=== PATIENT | male | born 1975 | race Caucasian/White ===

== ENCOUNTER 2017-12-05 17:01 | Inpatient (IN) | payer SELFPAY ==
[~2017-12-05] VITALS: Ht 180.3 cm; Wt 106.8 kg
[~2017-12-05 17:01] MED LIST: LEVAQUIN500 MG PO; TYLENOL WITH C1 EACH PO; ZOFRAN ODT4 MG PO
[2017-12-05] MEDS ORDERED: PANTOPRAZOLE 40 MG 10ML VIAL IV STA (20:35)
[2017-12-05] MEDS ORDERED: SODIUM CHLORIDE 0.9% 1000ML 1,000 ML IV STA ×2 (20:35→23:28)
[2017-12-05] MEDS ORDERED: ONDANSETRON HCL 4 MG ORAL DISINTEGRATING TAB PO ONE (21:00)
--- NOTE | 2017-12-05 21:36 | Diagnostic Imaging Report ---
ABDOMEN COMP INCL UPR or DECUB, CHEST 2 VIEWS Clinical history: Nausea, vomiting, abdominal pain Technique: AP view abdomen, supine and upright PA and lateral views of the chest Comparison: None Findings: Abdomen: No dilated loops of small or large bowel. No evidence of free air. Cholecystectomy clips. Chest: Normal cardiomediastinal silhouette. Calcified left upper lobe granuloma. No consolidation or edema. No effusion or pneumothorax. Impression: Nonobstructive bowel gas pattern. No acute intrathoracic abnormality. Signed by: Dr Felicita Dumont MD on 12/05/2017 9:33 PM
[2017-12-05 22:35] LABS: BASOPHILS # (AUTO) 0.1 (0.0-0.1); BASOPHILS % 0.5 % (0.0-1.0); EOSINOPHILS # (AUTO) 0.3 (0.0-0.4); EOSINOPHILS % 2.7 % (0.0-6.0); HEMATOCRIT 51.2 % (38.2-49.6); HEMOGLOBIN 18.9 g/dL (14.0-18.0); LYMPHOCYTES # (AUTO) 3.9 (1.0-3.2); LYMPHOCYTES % 40.9 % (18.0-39.1); MEAN CORPUSCULAR HEMOGLOBIN 32.7 pg (28-32); MEAN CORPUSCULAR HGB CONC 36.9 g/dL (31-35); MEAN CORPUSCULAR VOLUME 88.6 fL (81-99); MONOCYTES % 10.2 % (4.4-11.3); NEUTROPHILS # (AUTO) 4.4 (2.1-6.9); NEUTROPHILS % 45.4 % (38.7-80.0); PLATELET COUNT 312 x10e3/uL (140-360); RED BLOOD COUNT 5.78 x10e6/uL (4.3-5.7); RED CELL DISTRIBUTION WIDTH 13.2 % (11.7-14.4)
[2017-12-05 22:39] LABS: INR 1.01; PROTHROMBIN TIME 12.5 seconds (11.9-14.5)
[2017-12-05 22:49] LABS: ALANINE AMINOTRANSFERASE 34 IU/L (0-55); ALBUMIN 4.6 g/dL (3.5-5.0); ALBUMIN/GLOBULIN RATIO 0.8 (0.8-2.0); ALKALINE PHOSPHATASE 98 IU/L (40-150); AMYLASE 63 U/L (25-125); ANION GAP 23.1 mmol/L (8-16); BLOOD UREA NITROGEN 102 mg/dL (7-26); BUN/CREATININE RATIO 25 (6-25); CALCIUM 10.5 mg/dL (8.4-10.2); CARBON DIOXIDE 23 mmol/L (22-29); CHLORIDE 85 mmol/L (98-107); CREATINE KINASE 453 IU/L (30-200); CREATININE, SERUM 4.09 mg/dL (0.72-1.25); EST GLOMERULAR FILTRATION RATE 16 ML/MIN (60-); GLUCOSE 100 mg/dL (74-118); LIPASE 26 U/L (8-78); POTASSIUM 3.1 mmol/L (3.5-5.1); SODIUM 128 mmol/L (136-145)
[2017-12-05] MEDS ORDERED: MORPHINE SULFATE 2 MG/ML SYR IV STA (23:28)
[2017-12-05] MEDS ORDERED: SODIUM CHLORIDE 0.9% 1000ML 1,000 ML ONE (23:30)
[2017-12-05] MEDS ORDERED: PROMETHAZINE 12.5MG/ NACL 0.9% 12.5 MG/50 ML BAG IV ONE (23:30)
[2017-12-06] VITALS (10 sets, daily range): BP systolic 105–124; BP diastolic 60–86
[2017-12-06] MEDS ORDERED: KCL 20MEQ/.9 SOD CHL 1,000 ML IV ONE
[2017-12-06] MEDS ORDERED: MORPHINE SULFATE 2 MG/ML SYR IV PRN
--- OUTSIDE RECORDS SUMMARY | 2017-12-06 00:19 | XMS REPORT ---
[facility] Address Unknown Phone Unavailable Care Team Providers Care Structural Engineering Drafting Officer Name Role Phone JESSE EISENBERG Unavailable Unavailable Problems This patient has no known problems. Allergies, Adverse Reactions, Alerts This patient has no known allergies or adverse reactions. Medications This patient has no known medications. Encounters Start Date/Time End Date/Time Encounter Type Admission Type Attending Clinicians Care Facility Care Department Encounter ID 2017-04-24 00:00:00 2017-04-24 00:00:[address] [facility] [id number] 2017-04-23 00:00:00 2017-04-23 00:00:[address] [facility] [id number] 2017-04-11 00:00:00 2017-04-11 00:00:[address] [facility] [id number] 2017-04-07 23:58:15 2017-04-07 23:58:[address] [facility] [id number] 2017-04-07 20:47:49 2017-04-07 20:47:49 Inpatient [facility] [id number] Results Test Description Test Time Test Comments Text Results Atomic Results Result Comments CHEST 2 VIEWS [place] [address] Patient Name: EMMA VARGHESE MR #: [id number] : 1975 Age/Sex: 42/M Req #: [id number] Adm Physician: Ordered by: JESSE EISENBERG MD Report #: [id number] Location: ER Room/Bed: Procedure: [id number] DX/CHEST 2 VIEWS Exam Date: 12/05/17 Exam Time: 2099 REPORT STATUS: Signed ABDOMEN COMP INCL UPR or DECUB, CHEST 2 VIEWS Clinical history: Nausea, vomiting, abdominal pain Technique: AP view abdomen, supine and upright PA and lateral views of the chest Comparison: None Findings: Abdomen: No dilated loops of small or large bowel. No evidence of free air. Cholecystectomy clips. Chest: Normal cardiomediastinal silhouette. Calcified left upper lobe granuloma. No consolidation or edema. No effusion or pneumothorax. Impression: Nonobstructive bowel gas pattern. No acute intrathoracic abnormality. Signed by: Dr Keke Dumont MD on 12/05/2017 9:33 PM Dictated By: KEKE DUMONT MD 32 Transcribed By: KEENAN on 12/05/172132 COPY TO: JESSE EISENBERG MD ABDOMEN COMP INCL UPR or DECUB [place] [address] Patient Name: EMMA VARGHESE MR #: [id number] : 1975 Age/Sex: 42/M Req #: [id number] Adm Physician: Ordered by: JESSE EISENBERG MD Report #: [id number] Location: ER Room/Bed: Procedure: [id number] DX/ABDOMEN COMP INCL UPR or DECUB Exam Date: 12/05/17 Exam Time: 2099 REPORT STATUS: Signed ABDOMEN COMP INCL UPR or DECUB, CHEST 2 VIEWS Clinical history: Nausea, vomiting, abdominal pain Technique: AP view abdomen, supine and upright PA and lateral views of the chest Comparison: None Findings: Abdomen: No dilated loops of small or large bowel. No evidence of free air. Cholecystectomy clips. Chest: Normal cardiomediastinal silhouette. Calcified left upper lobe granuloma. No consolidation or edema. No effusion or pneumothorax. Impression: Nonobstructive bowel gas pattern. No acute intrathoracic abnormality. Signed by: Dr Keke Dumont MD on 2017 9:33 PM Dictated By: KEKE DUMONT MD 32 Transcribed By: KEENAN on 12/05/172132 COPY TO: JESSE EISENBERG MD
[2017-12-06] MEDS: METOCLOPRAMIDE HCL 10 MG/2ML VIAL IV SCH ×4 (00:35→17:35)
[2017-12-06 01:07] LABS: COLOR,URINE YELLOW (YELLOW); LEUKOCYTE ESTERASE ,URINE NEGATIVE (NEGATIVE); NITRITE,URINE NEGATIVE (NEGATIVE); PROTEIN,URINE DIPSTICK 1+ (NEGATIVE)
[2017-12-06 01:08] LABS: BILIRUBIN,URINE NEGATIVE (NEGATIVE); CLARITY,URINE SL CLOUDY (CLEAR); KETONES,URINE NEGATIVE (NEGATIVE); URINE UROBILINOGEN 0.2 mg/dL (0.2 - 1)
[2017-12-06 01:16] LABS: BACTERIA,URINE FEW /HPF; EPITHELIAL CELLS,URINE FEW /LPF; WBC,URINE (MAN) >50 /HPF (0-5)
[2017-12-06] MEDS: SODIUM CHLORIDE 0.9% 1000ML 1,000 ML IV SCH ×3 (02:00→17:35)
[2017-12-06] MEDS: PANTOPRAZOLE 40 MG 10ML VIAL IV SCH ×2 (08:40→16:55)
[2017-12-06 09:18] LABS: BASOPHILS # (AUTO) 0.1 (0.0-0.1); BASOPHILS % 0.6 % (0.0-1.0); EOSINOPHILS # (AUTO) 0.3 (0.0-0.4); EOSINOPHILS % 3.4 % (0.0-6.0); HEMATOCRIT 44.7 % (38.2-49.6); LYMPHOCYTES % 37.6 % (18.0-39.1); MEAN CORPUSCULAR HEMOGLOBIN 32.3 pg (28-32); MEAN CORPUSCULAR HGB CONC 35.8 g/dL (31-35); MEAN CORPUSCULAR VOLUME 90.1 fL (81-99); MONOCYTES # (AUTO) 0.8 (0.2-0.8); MONOCYTES % 10.3 % (4.4-11.3); NEUTROPHILS # (AUTO) 3.9 (2.1-6.9); NEUTROPHILS % 47.9 % (38.7-80.0); PLATELET COUNT 270 x10e3/uL (140-360); RED BLOOD COUNT 4.96 x10e6/uL (4.3-5.7); RED CELL DISTRIBUTION WIDTH 13.3 % (11.7-14.4)
[2017-12-06 09:35] LABS: ALBUMIN 3.5 g/dL (3.5-5.0); ALBUMIN/GLOBULIN RATIO 0.8 (0.8-2.0); ANION GAP 13.5 mmol/L (8-16); CALCIUM 9.2 mg/dL (8.4-10.2); CREATININE, SERUM 1.5 mg/dL (0.72-1.25); POTASSIUM 3.5 mmol/L (3.5-5.1)
[2017-12-06 09:51] LABS: CREATINE KINASE 281 IU/L (30-200)
[2017-12-06 17:30] LABS: CREATINE KINASE 227 IU/L (30-200)
[2017-12-06] MEDS: PANTOPRAZOLE SOD 40 MG TABEC PO SCH (18:00)
--- NOTE | 2017-12-06 18:49 | History and Physical ---
PRIMARY CARE PHYSICIAN: Patient has no local PCP. CHIEF COMPLAINT: Abdominal pain. HISTORY OF PRESENT ILLNESS: Mr. Ye is a 42-year-old gentleman who presents with epigastric abdominal pain with nausea, vomiting, and diarrhea for 24 hours, possibly after eating some bad food. REVIEW OF SYSTEMS: He denies fever, chills, or weight loss. He denies sinus congestion or sore throat. He denies chest pain or palpitations. He denies shortness of breath, wheezing, or cough. He has midepigastric abdominal pain with nausea, vomiting, and diarrhea. He denies melena or hematemesis. He denies dysuria or flank pain. He denies rash or pruritus. He denies headache, vertigo, or loss of consciousness. He denies depression, agitation, homicidal or suicidal ideation. PAST MEDICAL HISTORY: Significant for previous history of hepatitis C, unclear whether the patient is active or not. He has been treated in the past. He also has a history of diverticulitis. He has a distant history of cholecystectomy. CURRENT MEDICATIONS: Include Tylenol No. 3 as needed. He was taking levofloxacin for UTI and Zofran as needed. ALLERGIES: He has no known drug allergies. FAMILY HISTORY: Unremarkable. SOCIAL HISTORY: The patient is . [place] Zealander is his primary language. He is a daily smoker. He drinks rarely. He does not use illegal drugs and is generally independent functioning. PHYSICAL EXAMINATION PSYCHIATRIC: He is alert and oriented x3 with normal mood and affect. CONSTITUTIONAL: He has a normal habitus. He is in no acute distress. VITAL SIGNS: Blood pressure 113/68, pulse 69 and regular, respiratory rate 20, O2 sat 96% on room air, temperature 97.6. HEENT: His head is atraumatic. His eyes are anicteric with clear conjunctivae. Ears and nares are without erythema or discharge. Oropharynx is clear. NECK: Supple with no mass or thyromegaly. LYMPHATIC: He has no palpable cervical, axillary, or inguinal adenopathy. CARDIOVASCULAR: His heart has a regular rate rhythm without murmur or extra heart sounds. He has no carotid bruit. He has no peripheral edema. He has weak dorsal pedal pulses. RESPIRATORY: Lungs are clear to auscultation and percussion with somewhat diminished breath sounds. Otherwise lungs are clear. He has normal respiratory effort. GASTROINTESTINAL: His abdomen is soft without organomegaly, masses, or tenderness. He has no hepatosplenomegaly and normal bowel sounds are present. CUTANEOUS: His skin is warm and dry to touch with no rash or skin breakdown. MUSCULOSKELETAL: His joints are in normal alignment without erythema or swelling. He has no calf tenderness. NEUROLOGIC: Nonfocal with intact cranial nerves and no motor or sensory deficits. DIAGNOSTIC STUDIES: Chest x-ray shows no acute disease. KUB shows no acute disease. His chemistry shows sodium of 128, potassium 3.1, chloride 85, CO2 of 23, creatinine 4.09, BUN 102, glucose 100, calcium level was 10.5, and GFR 16. After overnight hydration, the patient's electrolytes are normal, CO2 is 20, creatinine 1.5, BUN 66 for a GFR of 51, glucose is still 100. His amylase is 26, lipase 29. Transaminases, bilirubin, and alk phos are normal. CBC shows a white count of 8.05 with a normal differential, hemoglobin 16.0, hematocrit 44.7, and platelet count 270,000. IMPRESSION AND PLAN 1. Gastroenteritis. The patient has received IV fluids, clear liquids, and we will advance his diet. 2. Acute kidney injury/dehydration. The patient is receiving aggressive IV fluid resuscitation. His renal function is improving and it looks like will improve to baseline. 3. For prophylaxis, we will use sequential compression devices for deep venous thrombosis prophylaxis and Protonix for gastrointestinal prophylaxis. Job#: [id number] JUAN DIEGO
[2017-12-06] MEDS: METOCLOPRAMIDE HCL 10 MG TAB PO SCH (20:43)
[2017-12-07] VITALS: BP 133/64
[2017-12-07] MEDS: SODIUM CHLORIDE 0.9% 1000ML 1,000 ML IV SCH ×2 (00:52→06:31)
[2017-12-07 04:00] VITALS: BP 112/56
[2017-12-07 07:53] LABS: BASOPHILS # (AUTO) 0.1 (0.0-0.1); BASOPHILS % 0.6 % (0.0-1.0); EOSINOPHILS # (AUTO) 0.3 (0.0-0.4); HEMATOCRIT 42.8 % (38.2-49.6); LYMPHOCYTES # (AUTO) 3.6 (1.0-3.2); LYMPHOCYTES % 43.8 % (18.0-39.1); MEAN CORPUSCULAR HEMOGLOBIN 32.3 pg (28-32); MONOCYTES # (AUTO) 0.8 (0.2-0.8); MONOCYTES % 9.9 % (4.4-11.3); NEUTROPHILS # (AUTO) 3.4 (2.1-6.9); NEUTROPHILS % 41.5 % (38.7-80.0); PLATELET COUNT 254 x10e3/uL (140-360); RED BLOOD COUNT 4.65 x10e6/uL (4.3-5.7); RED CELL DISTRIBUTION WIDTH 13.3 % (11.7-14.4)
[2017-12-07 08:00] VITALS: BP 130/66
[2017-12-07] MEDS: METOCLOPRAMIDE HCL 10 MG TAB PO SCH (08:00)
[2017-12-07] MEDS: PANTOPRAZOLE SOD 40 MG TABEC PO SCH (08:00)
[2017-12-07 08:13] VITALS: BP 130/66
[2017-12-07 08:23] LABS: ANION GAP 9.7 mmol/L (8-16); BLOOD UREA NITROGEN 23 mg/dL (7-26); BUN/CREATININE RATIO 31 (6-25); CALCIUM 9.2 mg/dL (8.4-10.2); CARBON DIOXIDE 24 mmol/L (22-29); CHLORIDE 105 mmol/L (98-107); CREATININE, SERUM 0.75 mg/dL (0.72-1.25); EST GLOMERULAR FILTRATION RATE > 60 ML/MIN (60-); GLUCOSE 100 mg/dL (74-118); POTASSIUM 3.7 mmol/L (3.5-5.1); SODIUM 135 mmol/L (136-145)
[2017-12-07] MEDS ORDERED: METOCLOPRAMIDE10 MG PO (09:32)
[2017-12-07] MEDS ORDERED: PROTONIX40 MG/ML PO (09:32)
--- NOTE | 2017-12-07 14:31 | Discharge Summary ---
PERTINENT HISTORY AND PHYSICAL FINDINGS: Mr. Ye is a 42-year-old gentleman who had presented to the emergency department with epigastric abdominal pain with nausea, vomiting, diarrhea for 24 hours, possibly after eating some bad food. PAST MEDICAL HISTORY: Significant for hepatitis C, and it was unclear whether it was active or not. He has been treated for hepatitis C in the past. Also has a history of diverticulitis and a distant history of cholecystectomy. He does take Tylenol No. 3 p.r.n. and Zofran as needed. He had been taking Levaquin for a urinary tract infection. NO KNOWN ALLERGIES. FAMILY HISTORY: Unremarkable. SOCIAL HISTORY: He is . Greenlandic is his primary language. He is a daily smoker. He drinks rarely, does not use illegal drugs and is generally independent functioning. ADMISSION DIAGNOSES 1. Gastroenteritis. 2. Acute kidney injury/dehydration. DISCHARGE DIAGNOSES 1. Gastroenteritis with nausea, vomiting, diarrhea. 2. Acute kidney injury/dehydration. 3. Nicotine use disorder, cigarettes, uncomplicated. No consulting physicians. PERTINENT DIAGNOSTICS AND LABS: Patient's chest x-ray showed no active or acute disease. KUB was negative. Chemistry showed sodium 128, potassium 3.1, chloride 85, CO2 23, creatinine 4.09, BUN 102, glucose 100, calcium 10.5 and GFR 16 upon admission. After overnight hydration, electrolytes were normal, CO2 20, creatinine 1.5, BUN 66 for a GFR of 51, glucose 100. Amylase 26, lipase 29. Transaminases, bilirubin and alkaline phosphatase were normal. CBC showed a white blood cell count of 8.05 with a normal differential, hemoglobin 16, hematocrit 44.7 and platelet count 270,000. Today the patient's WBC was 8.1, hemoglobin 15, hematocrit 42.8, platelets 254,000. Sodium 135, potassium 3.7, chloride 105, CO2 24, BUN 23, creatinine 0.75, glucose 100, GFR greater than 60, calcium 9.2, magnesium 2.0. Subjectively the patient has no pain. He has no complaints of nausea or vomiting this morning. He states he had 2 diarrhea stools this morning and possibly 1 yesterday. He ate 100% of his breakfast without difficulty. The rest of his review of systems was negative. PHYSICAL EXAMINATION VITAL SIGNS: Temperature 97.1, heart rate 78, blood pressure 112/56, respirations 18, oxygen saturation 95% on room air. GENERAL: The patient lying supine, flat in bed. No acute distress. LUNGS: Clear to auscultation. Respiratory pattern even and unlabored. HEENT: Extraocular eye movements intact. Moist mucous membranes. NECK: Supple. No lymphadenopathy or thyromegaly. CARDIOVASCULAR: Regular rate and rhythm. No murmur. He has normal saline infusing at 150 mL an hour into a peripheral IV. ABDOMEN: Bowel sounds positive. Soft, nontender. EXTREMITIES: Without pitting edema. No signs or symptoms of DVT. NEUROLOGICAL: GCS 15. Nonfocal. Patient will be discharged home without home health. He will not require any DME. He is to continue on a regular diet, activity level as tolerated. Prescriptions will be provided for Protonix and metoclopramide. He is to follow up with his PCP in 1 to 2 weeks. If he does not have a PCP, he is to follow up with Dr. Dominguez in 1 to 2 weeks. Dictated by: Juan Miguel Soto NP ONEYDA DOMINGUEZ MD Job#: [id number]
== END 2017-12-07 10:50 | disposition home health service (06) | DRG 683 ==
LOC: ER 17:01 → ERHOLD 12-06 00:16 → MED/SURG3 12-06 00:37
PROVIDERS: ADMIT Internal Medicine; ATTEND Internal Medicine
DX: N17.9 Acute kidney failure, unspecified (principal); E87.1 Hypo-osmolality and hyponatremia; N39.0 Urinary tract infection, site not specified; K52.9 Noninfective gastroenteritis and colitis, unspecified; F17.210 Nicotine dependence, cigarettes, uncomplicated; B19.20 Unspecified viral hepatitis C without hepatic coma; E86.0 Dehydration; E87.8 Other disorders of electrolyte and fluid balance, not elsewhere classified; E83.41 Hypermagnesemia
CPT/HCPCS: 36415; 71046; 80048; 80053; 81001; 82150; 82550; 82553; 83690; 83735; 84484; 85025; 85610; 85730; 93005; 96361; 99284; J2270; J2550; J2765; J7030

== ENCOUNTER 2019-02-17 07:47 | Emergency (ER) | payer SELFPAY ==
[~2019-02-17] VITALS: Ht 180.3 cm; Wt 106.6 kg
[~2019-02-17 07:47] MED LIST changes: +METOCLOPRAMIDE10 MG PO; +PROTONIX40 MG/ML PO
[2019-02-17] MEDS ORDERED: MORPHINE SULFATE 2 MG/ML SYR 1ML IV STA (08:05)
[2019-02-17] MEDS ORDERED: SODIUM CHLORIDE 0.9% 1000ML 1,000 ML IV STA (08:05)
[2019-02-17] MEDS ORDERED: ONDANSETRON HCL INJ 2MG/ML 2ML 2 MG/ML VIAL IV STA (08:05)
[2019-02-17] MEDS ORDERED: PANTOPRAZOLE 40 MG 10ML VIAL IV STA (08:05)
[2019-02-17] MEDS ORDERED: DIATRIZOATE MEGL/DIATRIZOA SOD 30 ML BTL PO ONE (08:19)
[2019-02-17 08:31] LABS: BASOPHILS # (AUTO) 0.1 (0.0-0.1); BASOPHILS % 0.5 % (0.0-1.0); EOSINOPHILS # (AUTO) 0.2 (0.0-0.4); EOSINOPHILS % 2.1 % (0.0-6.0); HEMATOCRIT 49.4 % (38.2-49.6); HEMOGLOBIN 17.6 g/dL (14.0-18.0); LYMPHOCYTES # (AUTO) 3.4 (1.0-3.2); LYMPHOCYTES % 34.5 % (18.0-39.1); MEAN CORPUSCULAR HEMOGLOBIN 31.7 pg (28-32); MEAN CORPUSCULAR HGB CONC 35.6 g/dL (31-35); MONOCYTES # (AUTO) 0.9 (0.2-0.8); MONOCYTES % 9.1 % (4.4-11.3); NEUTROPHILS # (AUTO) 5.3 (2.1-6.9); NEUTROPHILS % 53.3 % (38.7-80.0); PLATELET COUNT 293 x10e3/uL (140-360); RED BLOOD COUNT 5.55 x10e6/uL (4.3-5.7)
[2019-02-17 08:37] LABS: BILIRUBIN,URINE SMALL (NEGATIVE); CLARITY,URINE CLEAR (CLEAR); COLOR,URINE YELLOW (YELLOW); KETONES,URINE NEGATIVE (NEGATIVE); LEUKOCYTE ESTERASE ,URINE NEGATIVE (NEGATIVE); NITRITE,URINE NEGATIVE (NEGATIVE); PROTEIN,URINE DIPSTICK 1+ (NEGATIVE); URINE UROBILINOGEN 0.2 mg/dL (0.2 - 1)
[2019-02-17 08:38] LABS: INR 0.88; PARTIAL THROMBOPLASTIN TIME 32.3 seconds (23.8-35.5); PROTHROMBIN TIME 12.4 seconds (11.9-14.5)
[2019-02-17 08:43] LABS: AMPHETAMINES SCREEN,URINE NEGATIVE (NEGATIVE); BENZODIAZEPINES SCREEN,URINE NEGATIVE (NEGATIVE); PHENCYCLIDINE SCREEN,URINE NEGATIVE (NEGATIVE)
[2019-02-17 08:49] LABS: ALBUMIN 4.4 g/dL (3.5-5.0); ANION GAP 17.6 mmol/L (8-16); CALCIUM 10.2 mg/dL (8.4-10.2); CREATININE, SERUM 1.5 mg/dL (0.72-1.25); MAGNESIUM 2.5 MG/DL (1.3-2.1)
[2019-02-17 08:54] LABS: POTASSIUM 2.6 mmol/L (3.5-5.1)
--- NOTE | 2019-02-17 08:54 | NUR ---
NOTIFIED DR EISENBERG K+ 2.6. NO NEW ORDERS NOTED AT THIS TIME.
[2019-02-17 08:56] LABS: CREATINE KINASE MB 2.3 ng/mL (0-5.0)
[2019-02-17] MEDS ORDERED: POTASSIUM CHLORIDE 20 MEQ TAB CR PO STA (08:56)
[2019-02-17] MEDS ORDERED: KCL 20MEQ/.9 SOD CHL 1,000 ML IV ONE (09:00)
--- NOTE | 2019-02-17 09:03 | Diagnostic Imaging Report ---
EXAMINATION: CHEST SINGLE (PORTABLE) INDICATION: Pain, nausea and vomiting COMPARISON: Chest radiograph of 12/05/2017 FINDINGS: TUBES and LINES: None. LUNGS: The lung volumes are normal. No focal consolidation or pulmonary edema. PLEURA: No pleural effusion or pneumothorax. HEART AND MEDIASTINUM: The cardiomediastinal silhouette is normal in size and contour. BONES AND SOFT TISSUES: No acute fracture or dislocation. UPPER ABDOMEN: No free air under the diaphragm. IMPRESSION: No focal pneumonia or pulmonary edema. Signed by: Dede Davidson MD on 02/17/2019 9:00 AM
[2019-02-17 09:16] LABS: WBC,URINE (MAN) 0-5 /HPF (0-5)
[2019-02-17 09:17] LABS: BACTERIA,URINE MODERATE /HPF; EPITHELIAL CELLS,URINE RARE /LPF
[2019-02-17] MEDS ORDERED: DICYCLOMINE HCL 20 MG/2 ML VIAL IM ONE (09:45)
--- NOTE | 2019-02-17 10:46 | NUR ---
PATIENT STILL IN CT AT THIS TIME
--- NOTE | 2019-02-17 11:21 | Diagnostic Imaging Report ---
EXAM: CT Abdomen and Pelvis WITH intravenous contrast INDICATION: Abdominal pain COMPARISON: None. TECHNIQUE: Abdomen and pelvis were scanned utilizing a multidetector helical scanner from the lung base to the pubic symphysis after administration of IV contrast. Coronal and sagittal reformations were obtained. Routine protocol was performed. Scan was performed when during portal venous phase. IV CONTRAST: 100mL of Isovue 370 ORAL CONTRAST: Gastrografin COMPLICATIONS: None RADIATION DOSE: Total DLP: 1100.96 mGy*cm Dose modulation, iterative reconstruction, and/or weight based adjustment of the mA/kV was utilized to reduce the radiation dose to as low as reasonably achievable. FINDINGS: LOWER THORAX: Normal. HEPATOBILIARY: Diffuse hypoattenuation of liver parenchyma consistent with hepatic steatosis. No focal liver lesions. Status post cholecystectomy. SPLEEN: No splenomegaly. PANCREAS: No focal masses or ductal dilatation. ADRENALS: No adrenal nodules. KIDNEYS/URETERS: No hydronephrosis or renal calculi. Several left renal cysts measuring up to 1.3 cm. PELVIC ORGANS/BLADDER: Coarse calcifications within the nonenlarged prostate. PERITONEUM / RETROPERITONEUM: No free air or fluid. LYMPH NODES: No lymphadenopathy. VESSELS: Scattered atherosclerotic calcifications of the nonaneurysmal abdominal aorta and major branches. GI TRACT: Sigmoid colonic diverticulosis with no CT evidence of diverticulitis. No abnormal bowel thickening. No bowel obstruction. BONES AND SOFT TISSUES: No acute osseous injury. Mild degenerative changes of the lower lumbar spine. No suspicious lytic or blastic lesions. IMPRESSION: Hepatic steatosis. Sigmoid colonic diverticulosis with no evidence of diverticulitis. Signed by: Dede Davidson MD on 02/17/2019 11:18 AM
[2019-02-17 12:05] VITALS: BP 117/77
[2019-02-17] MEDS ORDERED: IOPAMIDOL 370 MG/ML 200 ML INFUS..BTL INJ ONE (13:31)
[2019-02-17] MEDS ORDERED: SODIUM CHLORIDE 0.9% 50ML 50 ML ONE (13:31)
== END 2019-02-17 12:32 | disposition home or self-care (01) ==
LOC: ER 07:47
DX: R10.11 Right upper quadrant pain (principal); R10.13 Epigastric pain; R10.12 Left upper quadrant pain; R11.2 Nausea with vomiting, unspecified; R19.7 Diarrhea, unspecified; B19.20 Unspecified viral hepatitis C without hepatic coma; E87.6 Hypokalemia; Z87.19 Personal history of other diseases of the digestive system
CPT/HCPCS: 36415; 71045; 74177; 80053; 80307; 81001; 82150; 82550; 82553; 83690; 83735; 83880; 84484; 85025; 85610; 85730; 87086; 93005; 99284; C1769; C9113; J0500; J2270; J2405; J7030; Q9967

== ENCOUNTER 2019-04-10 16:28 | Observation (INO) | payer SELFPAY ==
[~2019-04-10] VITALS: Ht 180.3 cm; Wt 124.7 kg
[2019-04-10] MEDS ORDERED: ONDANSETRON HCL INJ 2MG/ML 2ML 2 MG/ML VIAL IV ONE (16:30)
[2019-04-10] MEDS ORDERED: SODIUM CHLORIDE 0.9% 1000ML 1,000 ML IV STA (16:31)
[2019-04-10] MEDS ORDERED: DIATRIZOATE MEGL/DIATRIZOA SOD 30 ML BTL PO ONE (16:50)
[2019-04-10] MEDS ORDERED: MORPHINE SULFATE INJ 4 MG/ML INJ 1ML IV ONE (17:00)
[2019-04-10 17:16] LABS: BASOPHILS # (AUTO) 0.1 (0.0-0.1); BASOPHILS % 0.8 % (0.0-1.0); EOSINOPHILS # (AUTO) 0.3 (0.0-0.4); EOSINOPHILS % 2.6 % (0.0-6.0); HEMATOCRIT 51.6 % (38.2-49.6); HEMOGLOBIN 17.7 g/dL (14.0-18.0); LYMPHOCYTES # (AUTO) 2.7 (1.0-3.2); MEAN CORPUSCULAR HGB CONC 34.3 g/dL (31-35); MEAN CORPUSCULAR VOLUME 93.3 fL (81-99); MONOCYTES # (AUTO) 0.6 (0.2-0.8); MONOCYTES % 5.4 % (4.4-11.3); NEUTROPHILS # (AUTO) 6.7 (2.1-6.9); NEUTROPHILS % 64.8 % (38.7-80.0); PLATELET COUNT 274 x10e3/uL (140-360); RED BLOOD COUNT 5.53 x10e6/uL (4.3-5.7); RED CELL DISTRIBUTION WIDTH 13.8 % (11.7-14.4)
[2019-04-10 17:28] LABS: INR 0.91; PROTHROMBIN TIME 12.7 seconds (11.9-14.5)
[2019-04-10 17:29] LABS: PARTIAL THROMBOPLASTIN TIME 27.9 seconds (23.8-35.5)
[2019-04-10 17:37] LABS: ALBUMIN 4.7 g/dL (3.5-5.0); ANION GAP 19.2 mmol/L (8-16); CALCIUM 10.9 mg/dL (8.4-10.2); CREATININE, SERUM 1.54 mg/dL (0.72-1.25); MAGNESIUM 2.3 MG/DL (1.3-2.1); POTASSIUM 4.2 mmol/L (3.5-5.1)
[2019-04-10 17:43] LABS: CREATINE KINASE MB 6.3 ng/mL (0-5.0)
--- NOTE | 2019-04-10 17:59 | Diagnostic Imaging Report ---
EXAMINATION: CHEST SINGLE (PORTABLE) INDICATION: ^ERMD ORDER ^[id number] ^1720 ^Y COMPARISON: Chest radiograph 02/17/2019 FINDINGS: AP view TUBES and LINES: None. LUNGS: Lungs are well inflated. Worsening right lower lobe airspace opacity. No pulmonary edema. PLEURA: No pleural effusion or pneumothorax. HEART AND MEDIASTINUM: The cardiomediastinal silhouette is unremarkable.. BONES AND SOFT TISSUES: No acute osseous lesion. Soft tissues are unremarkable. UPPER ABDOMEN: No free air under the diaphragm. IMPRESSION: New right lower lobe airspace opacity may reflect pneumonia or aspiration. Recommend follow-up chest radiograph in 4-6 weeks. Signed by: Dr. Sharita Shaver M.D. on 04/10/2019 5:55 PM
[2019-04-10] MEDS ORDERED: BUTORPHANOL TARTRATE INJ 1 MG/ML VIAL IV ONE (18:00)
[2019-04-10 18:07] LABS: BILIRUBIN,URINE SMALL (NEGATIVE); CLARITY,URINE SL CLOUDY (CLEAR); COLOR,URINE YELLOW (YELLOW); KETONES,URINE NEGATIVE (NEGATIVE); LEUKOCYTE ESTERASE ,URINE NEGATIVE (NEGATIVE); NITRITE,URINE NEGATIVE (NEGATIVE); URINE UROBILINOGEN 0.2 mg/dL (0.2 - 1)
[2019-04-10 18:14] LABS: PROTEIN,URINE DIPSTICK 3+ (NEGATIVE)
[2019-04-10] MEDS ORDERED: IOPAMIDOL 370 MG/ML 200 ML INFUS..BTL INJ ONE (18:17)
[2019-04-10] MEDS ORDERED: SODIUM CHLORIDE 0.9% 50ML 0 ML ONE (18:17)
[2019-04-10 18:30] LABS: BACTERIA,URINE FEW /HPF; EPITHELIAL CELLS,URINE RARE /LPF; RBC,URINE 0-5 /HPF (0-5); WBC,URINE (MAN) 0-5 /HPF (0-5)
[2019-04-10 18:31] LABS: MUCUS,URINE FEW (RARE)
--- NOTE | 2019-04-10 19:37 | Diagnostic Imaging Report ---
EXAM: CT Abdomen and Pelvis WITHOUT intravenous contrast, with oral contrast INDICATION: Abdominal pain, history of diverticulitis COMPARISON: Abdominal CT 02/17/2019, 05/08/2014. TECHNIQUE: Abdomen and pelvis were scanned utilizing a multidetector helical scanner from the lung base to the pubic symphysis without administration of IV contrast. Absence of intravenous contrast decreases sensitivity for detection of focal lesions and vascular pathology. Coronal and sagittal reformations were obtained. Routine protocol was performed. IV CONTRAST: None ORAL CONTRAST: Gastroview COMPLICATIONS: None RADIATION DOSE: Total DLP: 889 mGy*cm Estimated effective dose: (DLP x 0.015 x size factor) mSv CTDIvol has been reviewed. It is below the limits set by the Radiation Protocol Committee (RPC). Dose modulation, iterative reconstruction, and/or weight based adjustment of the mA/kV was utilized to reduce the radiation dose to as low as reasonably achievable. FINDINGS: LINES and TUBES: None. LOWER THORAX: Unremarkable HEPATOBILIARY: Diffuse decreased hepatic attenuation. No focal hepatic lesions. No biliary ductal dilation. GALLBLADDER: There are cholecystectomy clips. SPLEEN: No splenomegaly. PANCREAS: No focal masses or ductal dilatation. ADRENALS: No adrenal nodules KIDNEYS/URETERS: No hydronephrosis. No cystic or solid mass lesions. No stones. Chronic bilateral perinephric fat stranding, slightly increased right perinephric fat stranding compared to abdominal CT on 02/17/2019 GI TRACT: No abnormal distention, wall thickening, or evidence of bowel obstruction. Colonic submucosal fat deposition, a common and benign finding in well-nourished patients. Appendix is normal. PELVIC ORGANS/BLADDER: Prostatic calcifications. LYMPH NODES: No lymphadenopathy. VESSELS: There is mild atherosclerotic disease in the aorta and major arterial branches. PERITONEUM / RETROPERITONEUM: No free air or fluid. BONES: Bilateral L5 pars defects, with minimal anterolisthesis of L5 on S1, and degenerative changes in the spine. SOFT TISSUES: There is a fat containing para-umbilical hernia. IMPRESSION: 1. Chronic mild bilateral perinephric fat stranding, which can be seen in the setting of renal insufficiency. Slight increased fat stranding around the right kidney compared to prior abdominal CT's, right pyelonephritis not excluded. Otherwise, no acute CT abnormalities in the abdomen or pelvis. 2. Hepatic steatosis. Signed by: Poli Reid DO on 04/10/2019 7:33 PM
[2019-04-10] MEDS ORDERED: NITROGLYCERIN 0.4 MG SUBL SL PRN (19:45)
[2019-04-10] MEDS ORDERED: SODIUM CHLORIDE 0.9% 1000ML 1,000 ML IV ONE (19:45)
[2019-04-10] MEDS ORDERED: ONDANSETRON HCL INJ 2MG/ML 2ML 2 MG/ML VIAL IV PRN (19:45)
[2019-04-10] MEDS: FAMOTIDINE 20 MG/2 ML VIAL IV SCH (20:38)
[2019-04-10 22:30] VITALS: BP 127/92
[2019-04-10 22:45] VITALS: BP 127/92
--- NOTE | 2019-04-10 22:52 | NUR ---
patent is a new admit that arrived via wheelchair. patient is awake and talking. patient has been assisted into the bed. bed is in the lowest position and call cespedes is within reach. will continue to monitor patient.
[2019-04-10 23:06] LABS: B-TYPE NATRIURETIC PEPTIDE2 < 10.0 pg/mL (0-100)
[2019-04-11] VITALS: BP 127/92
[2019-04-11 04:00] VITALS: BP 113/79
[2019-04-11 06:07] LABS: BASOPHILS # (AUTO) 0.1 (0.0-0.1); BASOPHILS % 0.8 % (0.0-1.0); EOSINOPHILS # (AUTO) 0.6 (0.0-0.4); EOSINOPHILS % 6.6 % (0.0-6.0); HEMATOCRIT 42.6 % (38.2-49.6); HEMOGLOBIN 14.5 g/dL (14.0-18.0); LYMPHOCYTES # (AUTO) 2.9 (1.0-3.2); LYMPHOCYTES % 34.4 % (18.0-39.1); MEAN CORPUSCULAR HEMOGLOBIN 32.4 pg (28-32); MEAN CORPUSCULAR VOLUME 95.1 fL (81-99); MONOCYTES # (AUTO) 0.7 (0.2-0.8); MONOCYTES % 7.7 % (4.4-11.3); NEUTROPHILS # (AUTO) 4.3 (2.1-6.9); NEUTROPHILS % 50.1 % (38.7-80.0); PLATELET COUNT 226 x10e3/uL (140-360); RED BLOOD COUNT 4.48 x10e6/uL (4.3-5.7); RED CELL DISTRIBUTION WIDTH 13.8 % (11.7-14.4)
--- NOTE | 2019-04-11 06:39 | NUR ---
report given to day nurse. patient is resting comfortably in bed. bed is in lowest position and call light is within reach.
[2019-04-11 06:46] LABS: ALANINE AMINOTRANSFERASE 36 IU/L (0-55); ALBUMIN 3.6 g/dL (3.5-5.0); ALBUMIN/GLOBULIN RATIO 1.1 (0.8-2.0); ALKALINE PHOSPHATASE 65 IU/L (40-150); ANION GAP 11.4 mmol/L (8-16); BLOOD UREA NITROGEN 15 mg/dL (7-26); BUN/CREATININE RATIO 15 (6-25); CALCIUM 9.4 mg/dL (8.4-10.2); CARBON DIOXIDE 28 mmol/L (22-29); CHLORIDE 104 mmol/L (98-107); CHOL/HDL RATIO 6.3 (3.9-4.7); CHOLESTEROL 150 MD/DL (0-199); CREATININE, SERUM 0.97 mg/dL (0.72-1.25); EST GLOMERULAR FILTRATION RATE > 60 ML/MIN (60-); GLUCOSE 106 mg/dL (74-118); HDL CHOLESTEROL 24 MG/DL (40-60); LDL CHOLESTEROL 104 MG/DL (60-130); POTASSIUM 3.4 mmol/L (3.5-5.1); SODIUM 140 mmol/L (136-145); TRIGLYCERIDES 109 MG/DL (0-149)
[2019-04-11 07:28] LABS: CREATINE KINASE MB 9.8 ng/mL (0-5.0)
[2019-04-11] MEDS: FAMOTIDINE 20 MG/2 ML VIAL IV SCH (07:45)
[2019-04-11 08:50] VITALS: BP 123/78
[2019-04-11] MEDS ORDERED: ASPIRIN 81 MG ENTERIC COATED PO SCH (09:00)
[2019-04-11 09:15] VITALS: BP 123/78
--- NOTE | 2019-04-11 09:48 | NUR ---
H&P cc: muscle pain HPI:43yoM, No PCP, with hx heat stroke, got dehydrated again with muscle aches. Chest discomfort, abdominal pain and muscle pain. Now all resolved after fluids. 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 affect labs/med; revd A/P: 43yoM Right PNA BECKY due to ATN Hypokalemia Dehydration Acute rhabdomyolysis Obesity BMI 38.4 Steatosis-hepatic Nicotine dependence PLAN IV abx IVF Recheck labs hba1c/lipids SCD Dispo: Adal Ashley MD, PhD.
[2019-04-11] MEDS ORDERED: SODIUM CHLORIDE 0.9% 100 ML 100 ML IV ONE (10:00)
[2019-04-11] MEDS ORDERED: AZITHROMYCIN 500MG/NS 250 ML 250 ML IV SCH (10:00)
--- NOTE | 2019-04-11 11:06 | NUR ---
D/C summary Principal dx: BECKY due to ATN Hypokalemia Dehydration Acute rhabdomyolysis Obesity BMI 38.4 secondary dx: Steatosis-hepatic Nicotine dependence PLAN IV abx IVF Recheck labs hba1c/lipids SCD Dispo: d/c home f/u 1 week stable d/c>35mins Adal Ashley MD, PhD.
--- NOTE | 2019-04-11 11:07 | NUR ---
Addendum to H&P: Pt does NOT have PNA. Adal Ashley MD, PHD.
[2019-04-11 12:27] VITALS: BP 113/87
[2019-04-11] MEDS ORDERED: PANTOPRAZOLE SOD 40 MG TABEC PO SCH (16:30)
== END 2019-04-11 12:52 | disposition home or self-care (01) ==
LOC: ER 16:28 → ERHOLD 20:27 → IMCU 22:30
PROVIDERS: ADMIT Internal Medicine; ATTEND Internal Medicine
DX: N17.0 Acute kidney failure with tubular necrosis (principal); R10.84 Generalized abdominal pain; R07.9 Chest pain, unspecified; Z86.19 Personal history of other infectious and parasitic diseases; E87.6 Hypokalemia; E86.0 Dehydration; M62.82 Rhabdomyolysis; E66.9 Obesity, unspecified; Z68.38 Body mass index [BMI] 38.0-38.9, adult; K76.0 Fatty (change of) liver, not elsewhere classified; F17.210 Nicotine dependence, cigarettes, uncomplicated; Z82.49 Family history of ischemic heart disease and other diseases of the circulatory system
CPT/HCPCS: 36415 ×2; 71045; 74176; 80053 ×2; 80061; 81001; 82150; 82550 ×2; 82553 ×2; 83036; 83605; 83690; 83735; 83880; 84484 ×2; 85025 ×2; 85610; 85730; 93005; 99284; G0378 ×2; J0595; J2270; J2405; J7030; Q9967

== ENCOUNTER 2019-09-23 16:47 | Emergency (ER) | payer SELFPAY ==
[~2019-09-23] VITALS: Ht 180.3 cm; Wt 124.7 kg
[2019-09-23] MEDS ORDERED: PANTOPRAZOLE 40 MG 10ML VIAL IV STA (17:06)
[2019-09-23] MEDS ORDERED: SODIUM CHLORIDE 0.9% 1000ML 1,000 ML IV STA (17:06)
[2019-09-23] MEDS ORDERED: PROMETHAZINE 25MG/ NS 50ML (IV) IV ONE (17:15)
[2019-09-23] MEDS ORDERED: DIPHENHYDRAMINE HCL INJ 50 MG/ML VIAL IV ONE (17:15)
[2019-09-23 18:53] LABS: BASOPHILS % 0.4 % (0.0-1.0); EOSINOPHILS % 0.2 % (0.0-6.0); HEMATOCRIT 53.3 % (38.2-49.6); HEMOGLOBIN 18.7 g/dL (14.0-18.0); LYMPHOCYTES # (AUTO) 1.8 (1.0-3.2); LYMPHOCYTES % 21.6 % (18.0-39.1); MEAN CORPUSCULAR HGB CONC 35.1 g/dL (31-35); MEAN CORPUSCULAR VOLUME 91.1 fL (81-99); MONOCYTES # (AUTO) 0.6 (0.2-0.8); MONOCYTES % 7.3 % (4.4-11.3); NEUTROPHILS # (AUTO) 5.9 (2.1-6.9); NEUTROPHILS % 69.9 % (38.7-80.0); PLATELET COUNT 217 x10e3/uL (140-360); RED BLOOD COUNT 5.85 x10e6/uL (4.3-5.7); RED CELL DISTRIBUTION WIDTH 12.9 % (11.7-14.4)
[2019-09-23 19:07] LABS: INR 0.94; PROTHROMBIN TIME 13.1 seconds (11.9-14.5)
[2019-09-23 19:08] LABS: PARTIAL THROMBOPLASTIN TIME 25.4 seconds (23.8-35.5)
[2019-09-23 19:18] LABS: ALANINE AMINOTRANSFERASE 49 IU/L (0-55); ALBUMIN 4.4 g/dL (3.5-5.0); ALBUMIN/GLOBULIN RATIO 1.2 (0.8-2.0); ALKALINE PHOSPHATASE 92 IU/L (40-150); ANION GAP 18.3 mmol/L (8-16); BLOOD UREA NITROGEN 46 mg/dL (7-26); BUN/CREATININE RATIO 27 (6-25); CALCIUM 9.4 mg/dL (8.4-10.2); CARBON DIOXIDE 29 mmol/L (22-29); CHLORIDE 90 mmol/L (98-107); CREATINE KINASE 260 IU/L (30-200); CREATININE, SERUM 1.68 mg/dL (0.72-1.25); EST GLOMERULAR FILTRATION RATE 44 ML/MIN (60-); GLUCOSE 122 mg/dL (74-118); LIPASE 10 U/L (8-78); MAGNESIUM 1.9 MG/DL (1.3-2.1); POTASSIUM 3.3 mmol/L (3.5-5.1); SODIUM 134 mmol/L (136-145)
--- NOTE | 2019-09-23 19:20 | NUR ---
PT ATTEMPTING TO GET OUT OF BED, ATTEMPTING TO REMOVE PAPER SCRUBS. PT MOVED TO ROOM 10 C STRETCHER PLACED NEAR WALL IN DIRECT VIEW OF NURSES STATION FOR CLOSER OBSERVATION. CHARGE NURSE CALLED WORKFORCE SPECIALIST TO REQUEST SITTER. NO SITTER AVAILABLE AT THIS TIME PER WORKFORCE SPECIALIST.
[2019-09-23 19:25] LABS: SALICYLATE < 5.0 mg/dL (0-30)
--- NOTE | 2019-09-23 19:32 | NUR ---
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 Spoke to Lucas Charlton ID:[id number] Ref:[id number]
--- NOTE | 2019-09-23 19:45 | NUR ---
ASHER VARGAS CALLED FOR WELFARE CHECK FOR PTS FATHER PATIENT IS PRIMARY CAREGIVER FOR FATHER
--- NOTE | 2019-09-23 19:46 | Diagnostic Imaging Report ---
Examination: Single AP view of the chest. COMPARISON: AP chest 04/10/2019 INDICATION: AMS, intoxicated IMPRESSION: 1. Lines and Tubes: None 2. Lungs are well-inflated. Right infrahilar patchy opacity may reflect atelectasis or aspiration. The rest of the lungs is clear. No consolidation or effusion. 3. Cardiomediastinal silhouette is normal. Pulmonary vasculature is normal. 4. No acute bony abnormalities. Signed by: Dr. Tera Rodriguez M.D. on 09/23/2019 7:44 PM
[2019-09-23 19:47] LABS: BENZODIAZEPINES SCREEN,URINE POSITIVE (NEGATIVE); PHENCYCLIDINE SCREEN,URINE NEGATIVE (NEGATIVE)
[2019-09-23 19:48] LABS: AMPHETAMINES SCREEN,URINE POSITIVE (NEGATIVE)
[2019-09-23 19:56] LABS: COLOR,URINE YELLOW (YELLOW)
[2019-09-23 19:57] LABS: BILIRUBIN,URINE 1+ (NEGATIVE); CLARITY,URINE CLOUDY (CLEAR); KETONES,URINE TRACE (NEGATIVE); PROTEIN,URINE DIPSTICK 2+ (NEGATIVE); URINE UROBILINOGEN 0.2 mg/dL (0.2 - 1)
[2019-09-23 20:00] LABS: AMORPHOUS SEDIMENT,URINE MANY (FEW); BACTERIA,URINE RARE /HPF; EPITHELIAL CELLS,URINE RARE /LPF; LEUKOCYTE ESTERASE ,URINE NEGATIVE (NEGATIVE); NITRITE,URINE NEGATIVE (NEGATIVE); RBC,URINE 0-5 /HPF (0-5)
--- NOTE | 2019-09-23 20:30 | NUR ---
INFORMED BY GENERAL STORE MANAGER THAT PT RETURNED FROM CT. TO ROOM, MULTIPLE STAFF IN ROOM ASSISTING PATIENT BACK TO BED. STATE THAT PATIENT FELL OUT OF STRETCHER. PT STATES THAT CLIMBED OVER STRETCHER RAIL AND FELL ONTO FLOOR LANDING ON RIGHT SIDE. PT DENIES INJURY. MOVES ALL EXTREMITES. DR OROURKE INFORMED. CHARGE NURSE AND GYM SUPERVISOR INFORMED.
--- NOTE | 2019-09-23 20:50 | NUR ---
ATTEMPTED TO CONTACT FAMILY MEMBER CASSY VARGHESE. NO ANSWER AT NUMBER LISTED, LEFT VOICEMAIL. CHARGE NURSE STATES THAT ASHER VARGAS CALLED TO GO TO [facility]IDENCE AND CHECK ON FAMILY.
--- NOTE | 2019-09-23 20:56 | Diagnostic Imaging Report ---
EXAMINATION: CT of the abdomen and pelvis without contrast. TECHNIQUE: Spiral CT images of the abdomen and pelvis were performed from the lung bases to the lesser trochanters. No intravenous contrast was given per renal stone protocol. Coronal and sagittal reformatted images were obtained. COMPARISON: CT abdomen and pelvis without contrast 04/10/2019 CLINICAL HISTORY:Abdominal pain, vomiting, altered mental status DISCUSSION: ABSENCE OF INTRAVENOUS CONTRAST DECREASES SENSITIVITY FOR DETECTION OF FOCAL LESIONS AND VASCULAR PATHOLOGY. ABDOMEN/PELVIS: LOWER THORAX: Unremarkable. HEPATOBILIARY: No focal hepatic lesions. No intra or extrahepatic biliary ductal dilation. GALLBLADDER: Cholecystectomy clips SPLEEN: No splenomegaly. PANCREAS: No focal masses or ductal dilatation. ADRENALS: No adrenal nodules. KIDNEYS/URETERS: No hydronephrosis, stones, or solid mass lesions. Minimal perinephric stranding, which is decreased since the prior exam PELVIC ORGANS/BLADDER: Bladder is unremarkable. Dystrophic calcifications in the prostate. PERITONEUM/RETROPERITONEUM: No free air or fluid. LYMPH NODES: No intra-abdominal,retroperitoneal, pelvic or inguinal lymphadenopathy. VESSELS: Mild atherosclerotic calcification of the distal abdominal aorta and proximal iliac vessels. GI TRACT: No bowel dilation or evidence of obstruction. No pericolonic inflammatory changes. BONES AND SOFT TISSUES: Degenerated disc predominantly at L4-L5 and L5-S1. No aggressive lytic lesions. Minimal anterolisthesis of L5 on S1 secondary to bilateral pars interarticularis defects. IMPRESSION: 1. No acute abdominopelvic abnormalities. Signed by: Dr. Tera Rodriguez M.D. on 09/23/2019 8:54 PM
--- NOTE | 2019-09-23 21:12 | Diagnostic Imaging Report ---
History:Vomiting, AMS Comparison studies: None Technique: Axial images were obtained from the skull base to the vertex. Coronal and sagittal reconstructions obtained from the axial data. Dose modulation, iterative reconstruction, and/or weight based adjustment of the mA/kV was utilized to reduce the radiation dose to as low as reasonably achievable. Findings: Scalp/skull: No abnormalities. No fractures, blastic or lytic lesions. Extra-axial spaces: No masses. No fluid collections. Brain sulci: Appropriate for age. Ventricles: Normal in size and configuration. No hydrocephalus. Parenchyma: No abnormal densities. No masses, hemorrhage, acute or chronic cortical vascular insults. Sellar/suprasellar region: No abnormalities Craniocervical junction: Patent foramen magnum. No Chiari one malformation. Atherosclerotic calcifications of the carotid siphons IMPRESSION: No acute abnormalities . Signed by: DR Al Bonilla M.D. on 09/23/2019 9:10 PM
--- NOTE | 2019-09-24 02:23 | NUR ---
attmepted to contact family for transport home upon discharge. unable to reach son or father. Addendum: 09/24/19 at 0225 by LAWRENCE attempted to contact family for transport home upon discharge. unable to reach son or father.
--- NOTE | 2019-09-24 05:35 | NUR ---
PT AWAKE AND ALERT. PT ABLE TO AMBULATE TO BATHROOM C ASSISTANCE. VOIDED AT THIS TIME. ASSISTED TO AMBULATE BACK TO ROOM. PT REQUESTING CAB VOUCHER FOR TRANSPORT HOME.
[2019-09-24 05:38] VITALS: BP 127/91
== END 2019-09-24 06:08 | disposition home or self-care (01) ==
LOC: ER 16:47
DX: R11.2 Nausea with vomiting, unspecified (principal); B19.20 Unspecified viral hepatitis C without hepatic coma; F12.10 Cannabis abuse, uncomplicated
CPT/HCPCS: 36415; 70450; 71045; 74176; 80053; 80307; 80320; 80329 ×2; 81001; 82550; 82553; 83690; 83735; 84484; 85025; 85610; 85730; 87086; 93005; 99284; C9113; J1200; J2550; J7030

== ENCOUNTER 2020-10-22 19:13 | Emergency (ER) | payer SELFPAY ==
[~2020-10-22] VITALS: Ht 182.9 cm; Wt 113.4 kg
[2020-10-22] MEDS ORDERED: ONDANSETRON HCL INJ 2MG/ML 2ML 2 MG/ML VIAL IV STA (19:25)
[2020-10-22] MEDS ORDERED: PANTOPRAZOLE 40 MG 10ML VIAL IV STA (19:25)
[2020-10-22] MEDS ORDERED: SODIUM CHLORIDE 0.9% 1000ML 1,000 ML IV ONE (19:30)
[2020-10-22] MEDS ORDERED: DIATRIZOATE MEGL/DIATRIZOA SOD 30 ML BTL PO ONE (19:44)
[2020-10-22 20:03] LABS: BASOPHILS # (AUTO) 0.1 (0.0-0.1); BASOPHILS % 0.6 % (0.0-1.0); EOSINOPHILS # (AUTO) 0.2 (0.0-0.4); EOSINOPHILS % 1.7 % (0.0-6.0); HEMOGLOBIN 16.3 g/dL (14.0-18.0); LYMPHOCYTES % 18.9 % (18.0-39.1); MEAN CORPUSCULAR HEMOGLOBIN 31.7 pg (28-32); MEAN CORPUSCULAR HGB CONC 34.7 g/dL (31-35); MEAN CORPUSCULAR VOLUME 91.3 fL (81-99); MONOCYTES # (AUTO) 0.5 (0.2-0.8); NEUTROPHILS # (AUTO) 7.9 (2.1-6.9); NEUTROPHILS % 73.4 % (38.7-80.0); PLATELET COUNT 207 x10e3/uL (140-360); RED BLOOD COUNT 5.15 x10e6/uL (4.3-5.7); RED CELL DISTRIBUTION WIDTH 13.9 % (11.7-14.4)
[2020-10-22 20:25] LABS: ALANINE AMINOTRANSFERASE 46 IU/L (0-55); ALBUMIN 4.3 g/dL (3.5-5.0); ALBUMIN/GLOBULIN RATIO 1.1 (0.8-2.0); ALKALINE PHOSPHATASE 82 IU/L (40-150); AMYLASE 34 U/L (25-125); ANION GAP 18.1 mmol/L (8-16); BLOOD UREA NITROGEN 21 mg/dL (7-26); BUN/CREATININE RATIO 17 (6-25); CALCIUM 9.5 mg/dL (8.4-10.2); CARBON DIOXIDE 22 mmol/L (22-29); CHLORIDE 99 mmol/L (98-107); CREATINE KINASE 248 IU/L (30-200); CREATININE, SERUM 1.21 mg/dL (0.72-1.25); EST GLOMERULAR FILTRATION RATE > 60 ML/MIN (60-); GLUCOSE 147 mg/dL (74-118); LIPASE 8 U/L (8-78); POTASSIUM 3.1 mmol/L (3.5-5.1); SODIUM 136 mmol/L (136-145)
[2020-10-22] MEDS ORDERED: KETOROLAC TROMETHAMINE 30 MG/ML VIAL IV STA (21:02)
[2020-10-22] MEDS ORDERED: IOPAMIDOL 370 MG/ML 200 ML INFUS..BTL INJ ONE (21:35)
[2020-10-22] MEDS ORDERED: SODIUM CHLORIDE 0.9% 50ML 50 ML ONE (21:35)
== END 2020-10-22 23:30 | disposition home or self-care (01) ==
LOC: ER 19:23
DX: R10.84 Generalized abdominal pain (principal); R11.2 Nausea with vomiting, unspecified; B19.20 Unspecified viral hepatitis C without hepatic coma; R94.31 Abnormal electrocardiogram [ECG] [EKG]; Z87.19 Personal history of other diseases of the digestive system; F17.210 Nicotine dependence, cigarettes, uncomplicated
CPT/HCPCS: 36415; 74177; 80053; 82150; 82550; 82553; 83690; 84484; 85025; 93005; 99284; C9113; J1885; J2405; J7030; Q9967